=== PATIENT | female | born 1930 | race Two or more races ===

== ENCOUNTER 2017-07-07 15:41 | Inpatient (IN) | payer MEDICARE, MEDICAID ==
[~2017-07-07] VITALS: Ht 157.5 cm; Wt 48.3 kg
--- NOTE | 2017-07-07 15:45 | NUR ---
BIB RA FROM HOME, NOT GETTING OUT OF BED SINCE SHE FELL AND HIT HER HEAD YESTERDAY. RR IS EVEN AND UNLABORED WITH NAD NOTED. SKIN IS WARM AND DRY. DR MAGANA AT BS FOR EVAL. CRIS L WRIST 20 CHILDCARE DIRECTOR. PLACED ON MONITOR AND WILL CONTINUOUSLY MONITOR THE PATIENT.
--- NOTE | 2017-07-07 15:58 | NUR ---
BS=76MG/DL, NOTIFIED DR MAGANA
[2017-07-07 16:16] LABS: BASOPHILS % (AUTO) 0.3 % (0.0-2.0); EOSINOPHILS # (AUTO) 0.1 /CMM (0.0-0.7); EOSINOPHILS % (AUTO) 1.3 % (0.0-6.0); HEMATOCRIT 34 % (33-45); HEMOGLOBIN 11.5 g/dL (11.5-14.8); LYMPHOCYTES % (AUTO) 12.1 % (20.0-44.0); MEAN CORPUSCULAR HEMOGLOBIN 30 PG (26.0-33.0); MEAN CORPUSCULAR HGB CONC 34 g/dl (31.0-36.0); MEAN CORPUSCULAR VOLUME 89 fL (82-100); MONOCYTES # (AUTO) 0.4 /CMM (0.1-1.30); MONOCYTES % (AUTO) 5.2 % (2.0-12.0); NEUTROPHILS # (AUTO) 6.5 /CMM (1.8-8.9); NEUTROPHILS % (AUTO) 81.1 % (43.0-81.0); PLATELET COUNT (AUTO) 273 /CMM (150-450); RDW COEFFICIENT OF VARIATION 13.2 (11.5-15.0); RED BLOOD CELL COUNT(AUTO) 3.81 MIL/uL (4.0-5.2)
[2017-07-07 16:27] LABS: CALCIUM, SERUM 8.8 mg/dL (8.5-10.1); CARBON DIOXIDE 27 mmol/L (21-32); CHLORIDE 111 mmol/L (98-107); CREATININE 0.6 mg/dL (0.6-1.3); GLUCOSE 82 mg/dL (74-106); POTASSIUM 3.9 mmol/L (3.5-5.1); SODIUM SERUM 144 mmol/L (136-145); UREA NITROGEN, BLOOD 22 mg/dL (7-18)
[2017-07-07 16:29] LABS: INR 1.01 (0.85-1.15)
--- NOTE | 2017-07-07 16:30 | NUR ---
Patient is resting comfortably in bed with eyes closed. Easily aroused. VSS
[2017-07-07 16:34] LABS: ALANINE AMINOTRANSFERASE 14 U/L (12-78); ALBUMIN 3.4 g/dL (3.4-5.0); ALKALINE PHOSPHATASE 73 U/L (46-116); ASPARTATE AMINOTRANSFERASE 16 U/L (15-37); BILIRUBIN,DIRECT 0.1 mg/dL (0.0-0.2); BILIRUBIN,TOTAL 0.5 mg/dL (0.2-1.0); TOTAL PROTEIN, SERUM 6.7 g/dL (6.4-8.2)
[2017-07-07 16:36] LABS: TROPONIN I < 0.017 ng/mL (0.00-0.056)
[2017-07-07 16:43] LABS: APPEARANCE,URINE Clear (CLEAR); BILIRUBIN,URINE Negative (NEGATIVE); BLOOD, URINE Moderate Ery/uL (NEGATIVE); COLOR,URINE Yellow (YELLOW); KETONES,URINE 40 (NEGATIVE); LEUKOCYTE ESTERASE ,URINE Trace (NEGATIVE); NITRITE, URINE Positive (NEGATIVE); PH,URINE 6.5 (5.0-8.0); PROTEIN,URINE 30 mg/dl (NEGATIVE); UGLUCOSE 100 MG/DL mg/dL (NEGATIVE)
[2017-07-07 16:49] LABS: BACTERIA,URINE Many /HPF (None Seen); MUCUS,URINE Moderate /LPF (None Seen); SQUAMOUS EPITHELIAL CELL,UR Many /HPF (None Seen)
[2017-07-07 17:25] LABS: NEUTROPHILS % (MANUAL) 79 (42-76)
[2017-07-07 17:26] LABS: EOSINOPHILS % (MANUAL) 3 % (0-4); LYMPHOCYTES % (MANUAL) 13 % (16-48); MONOCYTES % (MANUAL) 5 % (0-11.0)
--- NOTE | 2017-07-07 17:45 | NUR ---
Patient is resting comfortably in bed with eyes closed. Easily aroused. VSS
[2017-07-07] MEDS ORDERED: CIPROFLOXACIN IV RTU 400 MG in PREMIX 1 EA IV STA (18:15)
[2017-07-07] MEDS ORDERED: CIPROFLOXACIN IV RTU 200 ML IV ONE (18:21)
--- NOTE | 2017-07-07 19:03 | NUR ---
REPORT GIVEN CHASE PRINCE FOR BOBBY.
[2017-07-07] MEDS ORDERED: QUET25TA PO (19:09)
[2017-07-07] MEDS ORDERED: LORA0.5T PO (19:09)
[2017-07-07] MEDS ORDERED: ACETAMINOPHEN 325 MG TABLET PO PRN (19:30)
[2017-07-07] MEDS ORDERED: HYDROCODONE/APAP 5/325MG 1 EACH TABLET PO PRN (19:30)
[2017-07-07] MEDS ORDERED: ONDANSETRON HCL/PF 4 MG/2 ML VIAL IVP PRN (19:30)
[2017-07-07] MEDS ORDERED: MAG HYDROX/AL HYDROX/SIMETH 30 ML UDC PO PRN (19:30)
[2017-07-07] MEDS ORDERED: MAGNESIUM HYDROXIDE 30 ML UDC PO PRN (19:30)
[2017-07-07] MEDS ORDERED: ZOLPIDEM TARTRATE 5 MG TABLET PO PRN (19:30)
[2017-07-07] MEDS ORDERED: Z GUARD REMEDY 2 OZ OINT TP PRN (19:30)
--- NOTE | 2017-07-07 19:34 | NUR ---
Patient is resting comfortably in bed with eyes closed. Easily aroused. VSS. daughter bedside
--- NOTE | 2017-07-07 20:31 | NUR ---
gave report to angelic Chaudhary for americo
[2017-07-07 20:40] VITALS: BP 135/66
--- NOTE | 2017-07-07 20:40 | NUR ---
TELERN RECEIVED FROM ER 86Y/O FEMALE S/P FALL AT HOME AFTER GETTING OOB. SUSTAINED LEFT FOREHEAD LACERATION COVERED WITH BANDAID. ALTERED, LIMITED VERBAL, S[place] AFR[place] DESCENT. NO SOB, PAINFREE, V/S STABLE. HFR, BED ALARM ON, ORIENTED TO ROOM FACILITIES, UNABLE TO FOLLOW. TO STAY OVERNIGHT. DAUGHTER PROVIDED HEALTH INFO OF PATIENT. KEPT COMFORTABLE, SR ON THE MONITOR. CONTINUED
[2017-07-07] MEDS ORDERED: LEVOFLOXACIN 750 MG /D5W 150ML 750 MG in PREMIX 1 EA IV SCH (21:00)
[2017-07-07] MEDS: IV NS 0.9% 1,000 ML IV PRN (21:30)
[2017-07-07] MEDS: ENOXAPARIN SODIUM 40 MG/0.4 ML DISP.SYRIN SQ SCH (21:33)
[2017-07-07] MEDS ORDERED: LEVOFLOXACIN 750 MG /D5W 150ML 150 ML IV ONE (22:43)
--- NOTE | 2017-07-07 23:00 | NUR ---
TELERN DUE MEDS ADMINISTERD, PRESENT IVF INFUSING WELL. PICTURES TAKEN SEE CHART. REPOSITIONED, ALL NEEDS ATTENDED.
[2017-07-08] VITALS (8 sets, daily range): BP systolic 107–144; BP diastolic 49–90
--- NOTE | 2017-07-08 02:43 | NUR ---
TELERN SLEEPING APPEARS COMFORTABLE, CLOSELY WATCHED
--- NOTE | 2017-07-08 07:15 | NUR ---
RN NOTES: PATIENT RESTING IN BED. NONLABORED BREATHING ON ROOM AIR. AOX1, NO FACIAL GRIMACING NOTED. PATIENT'S IV ON LEFT ARM GAUGE 20 PATENT AND INTACT. BED IN LOWEST LOCKED POSITION, CALL LIGHT WITHIN REACH, WILL CONTINUE TO MONITOR
--- NOTE | 2017-07-08 07:22 | NUR ---
MSRN AWAKE AT TIMES, FELL ASLEEP AFTER FEW MIN. SCD ON. IVF CONTINUED
[2017-07-08 08:15] LABS: BASOPHILS % (AUTO) 0.2 % (0.0-2.0); EOSINOPHILS # (AUTO) 0.2 /CMM (0.0-0.7); EOSINOPHILS % (AUTO) 2.6 % (0.0-6.0); HEMATOCRIT 31 % (33-45); HEMOGLOBIN 10.6 g/dL (11.5-14.8); LYMPHOCYTES # (AUTO) 1.2 /CMM (0.8-4.8); MEAN CORPUSCULAR HEMOGLOBIN 31 PG (26.0-33.0); MEAN CORPUSCULAR HGB CONC 34 g/dl (31.0-36.0); MEAN CORPUSCULAR VOLUME 91 fL (82-100); MONOCYTES # (AUTO) 0.6 /CMM (0.1-1.30); NEUTROPHILS # (AUTO) 6.1 /CMM (1.8-8.9); NEUTROPHILS % (AUTO) 75.2 % (43.0-81.0); PLATELET COUNT (AUTO) 245 /CMM (150-450); RDW COEFFICIENT OF VARIATION 14.2 (11.5-15.0); RED BLOOD CELL COUNT(AUTO) 3.45 MIL/uL (4.0-5.2); WHITE BLOOD COUNT (AUTO) 8.1 K/uL (4.3-11.0)
[2017-07-08 08:27] LABS: CALCIUM, SERUM 8.3 mg/dL (8.5-10.1); CARBON DIOXIDE 23 mmol/L (21-32); CHLORIDE 111 mmol/L (98-107); CREATININE 0.6 mg/dL (0.6-1.3); GLUCOSE 80 mg/dL (74-106); MAGNESIUM 2.1 mg/dL (1.8-2.4); PHOSPHORUS 2.5 mg/dL (2.5-4.9); POTASSIUM 3.9 mmol/L (3.5-5.1); SODIUM SERUM 145 mmol/L (136-145); UREA NITROGEN, BLOOD 16 mg/dL (7-18)
[2017-07-08 08:38] LABS: CHOLESTEROL 120 mg/dL (<200); HDL CHOLESTEROL 48 mg/dL (40-60); LDL 67 mg/dL (0-99); THYROID STIMULATING HORMONE 1.885 uIU/mL (0.358-3.74); TRIGLYCERIDES 46 mg/dL (30-150)
[2017-07-08] MEDS ORDERED: FISH1CAP16 PO (13:03)
[2017-07-08] MEDS ORDERED: METF500T4 PO (13:03)
[2017-07-08] MEDS ORDERED: ASPI-1152 PO (13:03)
[2017-07-08] MEDS ORDERED: DOCU250C89 PO (13:03)
[2017-07-08] MEDS ORDERED: SIMV20TA6 PO (13:03)
[2017-07-08] MEDS ORDERED: [UNRECOGNIZED DRUG - CODE] PO (13:03)
[2017-07-08] MEDS ORDERED: FOLI1TAB16 PO (13:03)
[2017-07-08] MEDS ORDERED: ZOLP5TAB2 PO (13:03)
[2017-07-08] MEDS ORDERED: OXYB10TA PO (13:03)
[2017-07-08] MEDS ORDERED: METH5TAB6 PO (13:03)
--- NOTE | 2017-07-08 13:45 | NUR ---
RN NOTES: FACIAL GRIMACING NOTED ON PATIENT INDICATING MODERATE PAIN. NORCO PRN ADMINISTERED BP 149/67, NONLABORED BREATHING ON ROOM AIR
--- NOTE | 2017-07-08 14:00 | NUR ---
RN NOTES: DR ALONZO ORDERED TO CONTINUE THE SEROQUEL 25 MG PO Q AM AND PM
--- NOTE | 2017-07-08 14:00 | NUR ---
RN NOTES: DR ALONZO ORDERED TO CONTINUE THE SEROQUEL 25 MG PO Q AM AND PM PER PATIENT'S ADMINISTRATION DOSAGE AT HOME. INFORMED THAT HOME MEDICATION LIST IS ALSO UPDATED VIA [facility] NURSE
[2017-07-08] MEDS: IV NS 0.9% 1,000 ML IV PRN (14:26)
[2017-07-08] MEDS ORDERED: QUETIAPINE FUMARATE 25 MG TABLET PO SCH ×2 (14:30→22:00)
--- NOTE | 2017-07-08 19:19 | NUR ---
RN NOTES: PATIENT'S TEMP CHECKED NOW, 100.2F AFTER TYLENOL AND COOLING MEASURES IMPLEMENTED, ENDORSED TO MARILUZ FROZEN FOODS MANAGER TO RECHECK TEMPERATURE AGAIN, NO SIGNS OF DISTRESS NOTED. DR ALONZO AWARE OF POSITIVE ECOLI CULUTRE URINE
--- NOTE | 2017-07-08 19:20 | NUR ---
RN NOTES: PATIENT RESTING IN BED. NONLABORED BREATHING ON ROOM AIR. AOX1, NO FACIAL GRIMACING NOTED. PATIENT'S IV ON LEFT ARM GAUGE 20 PATENT AND INTACT. BED IN LOWEST LOCKED POSITION, CALL LIGHT WITHIN REACH. DURING SHIFT,PATIENT KEPT CLEAN AND DRY, TURNED AND REPOSITIONED Q 2 HOURS. PATIENT ASSESSED AND NEURO CHECKS DONE Q 2 HOURS,PATIENT REMAINED CONFUSED THROUGHOUT SHIFT, UNABLE TO FOLLOW DEMANDS, REORIENTED. PUPILS REACTIVED TO LIGHT, 3 MM, SLUGGISH, WHEN SPOKEN TO FOLLOW PENLIGHT,PATIENT UNABLE TO DO IT.PER DR, PATIENT IS CONFUSED PREVIOUSLY AT HOME. ENDORSED TO NEXT SHIFT
--- NOTE | 2017-07-08 20:00 | NUR ---
MS/DATABASE SUPPORT; RECEIVED PT IN BED WITH EYES CLOSED , NON VERBAL. BREATHING NON LABORED. IVF ON PROGRESS. NOTED LT SIDE FOREHEAD WITH MEPILEX ON. BED ON LOWER POSITION FOR SAFETY. SIDE RAILS ARE UP X 4 FOR SAFETY. FC INTACT WITH 100 ML CLEAR YELLOW URINE. CONTINUE TO MONITOR. CALL LIGHT WITHIN REACH.
[2017-07-08] MEDS: ENOXAPARIN SODIUM 40 MG/0.4 ML DISP.SYRIN SQ SCH (21:19)
[2017-07-08] MEDS: QUETIAPINE FUMARATE 25 MG TABLET PO SCH (22:52)
[2017-07-09] MEDS: IV NS 0.9% 1,000 ML IV PRN ×2 (02:25→18:57)
--- NOTE | 2017-07-09 07:15 | NUR ---
MS/TUB MENDER; SLEEP MOST OF THE NIGHT. PT MOANED AND OPENED HER EYES DURING TURNING OF THE PT. IVF ON PROGRESS, WILL CONTINUE TO MONITOR. WILL ENDORSE TO THE DAY SHIFT RN.
[2017-07-09 07:44] LABS: BASOPHILS % (AUTO) 0.5 % (0.0-2.0); EOSINOPHILS # (AUTO) 0.2 /CMM (0.0-0.7); EOSINOPHILS % (AUTO) 2.9 % (0.0-6.0); HEMATOCRIT 34 % (33-45); HEMOGLOBIN 11.5 g/dL (11.5-14.8); LYMPHOCYTES # (AUTO) 1.1 /CMM (0.8-4.8); LYMPHOCYTES % (AUTO) 17.5 % (20.0-44.0); MEAN CORPUSCULAR HEMOGLOBIN 31 PG (26.0-33.0); MEAN CORPUSCULAR HGB CONC 34 g/dl (31.0-36.0); MEAN CORPUSCULAR VOLUME 91 fL (82-100); MONOCYTES # (AUTO) 0.6 /CMM (0.1-1.30); MONOCYTES % (AUTO) 8.6 % (2.0-12.0); NEUTROPHILS # (AUTO) 4.6 /CMM (1.8-8.9); NEUTROPHILS % (AUTO) 70.5 % (43.0-81.0); PLATELET COUNT (AUTO) 263 /CMM (150-450); RDW COEFFICIENT OF VARIATION 14.2 (11.5-15.0); RED BLOOD CELL COUNT(AUTO) 3.71 MIL/uL (4.0-5.2); WHITE BLOOD COUNT (AUTO) 6.5 K/uL (4.3-11.0)
[2017-07-09 08:00] VITALS: BP 157/72
--- NOTE | 2017-07-09 08:30 | NUR ---
ms rn received on bed, nonverbal patient, not in any form of distress, respirations even and unlabored,no sob noted.
[2017-07-09 08:35] LABS: CALCIUM, SERUM 8.8 mg/dL (8.5-10.1); CARBON DIOXIDE 26 mmol/L (21-32); CHLORIDE 110 mmol/L (98-107); CREATININE 0.7 mg/dL (0.6-1.3); GLUCOSE 89 mg/dL (74-106); MAGNESIUM 2.1 mg/dL (1.8-2.4); PHOSPHORUS 3.6 mg/dL (2.5-4.9); POTASSIUM 3.9 mmol/L (3.5-5.1); SODIUM SERUM 142 mmol/L (136-145); UREA NITROGEN, BLOOD 12 mg/dL (7-18)
--- NOTE | 2017-07-09 09:30 | NUR ---
ms atwood breakfast served, text dr. jennings to reconcile medications.
[2017-07-09] MEDS ORDERED: ZOLPIDEM TARTRATE 5 MG TABLET PO PRN ×2 (12:00→14:00)
[2017-07-09] MEDS ORDERED: MAGNESIUM HYDROXIDE 30 ML UDC PO PRN (12:00)
--- NOTE | 2017-07-09 12:00 | NUR ---
ms rn gave due meds at this time.daughter aware.
[2017-07-09] MEDS: METFORMIN 500 MG TABLET PO SCH (13:39)
[2017-07-09] MEDS: MULTIVITAMINS,THERAGRAN 1 UDTAB TABLET PO SCH (13:39)
[2017-07-09] MEDS: OXYBUTYNIN CHLORIDE ER 5 MG TAB PO SCH (13:40)
[2017-07-09] MEDS: METHIMAZOLE (5MG) 5 MG TABLET PO SCH (13:40)
[2017-07-09] MEDS: DOCUSATE SODIUM 250 MG CAPSULE PO SCH ×2 (13:40→18:52)
[2017-07-09] MEDS: ASPIRIN EC 81 MG TABLET.DR PO SCH (13:40)
[2017-07-09] MEDS: QUETIAPINE FUMARATE 25 MG TABLET PO SCH ×2 (13:40→22:13)
[2017-07-09 16:00] VITALS: BP 148/56
[2017-07-09] MEDS ORDERED: QUETIAPINE FUMARATE 25 MG TABLET PO SCH (17:00)
[2017-07-09] MEDS ORDERED: DOCUSATE SODIUM 250 MG CAPSULE PO SCH (17:00)
[2017-07-09] MEDS ORDERED: FOLIC ACID 1 MG TABLET PO SCH (18:00)
--- NOTE | 2017-07-09 18:43 | NUR ---
ms rn on bed, no change of condition.all needs attended.
[2017-07-09] MEDS: FOLIC ACID 1 MG TABLET PO SCH (18:52)
--- NOTE | 2017-07-09 19:30 | NUR ---
MS/ENTEROSTOMAL NURSE; RECEIVED PT IN BED WITH EYES CLOSED. BREATHING NON LABORED. LT SIDE FOREHEAD WITH MEPILEX ON. FC INTACT WITH 20 ML YELLOW URINE IN THE BAG. IVF ON PROGRESS. BED ON LOWER POSITION AND LOCKED FOR SAFETY. SIDE RAILS X 4 ARE ALL UP FOR SAFETY. CONTINUE TO MONITOR. CALL LIGHT WITHIN REACH.
[2017-07-09 20:00] VITALS: BP 127/48
[2017-07-09] MEDS: ENOXAPARIN SODIUM 40 MG/0.4 ML DISP.SYRIN SQ SCH (20:52)
[2017-07-09] MEDS ORDERED: LEVOFLOXACIN 750 MG /D5W 150ML 750 MG in PREMIX 1 EA IV SCH (21:00)
[2017-07-09] MEDS ORDERED: LORAZEPAM 0.5 MG TABLET PO PRN (21:00)
[2017-07-09] MEDS ORDERED: SIMVASTATIN 20 MG TABLET PO SCH ×2 (22:00)
[2017-07-09] MEDS ORDERED: POLYETHYLENE GLYCOL 3350 17 GM POWD.PACK PO SCH (22:00)
[2017-07-09] MEDS ORDERED: LORAZEPAM 0.5 MG TABLET PO SCH (22:00)
--- NOTE | 2017-07-10 07:00 | NUR ---
MS /INDUSTRIAL ORGANIZATIONAL PSYCHOLOGIST; SLEPT FAIRLY. IVF ON PROGRESS. FC INTACT WITH YELLOW URINE. NO BM AT MODEL MAKER FIREARMS. AM CARE DONE BY THE GLOBAL MOBILITY SPECIALIST. WILL ENDORSE TO THE DAY SHIFT.
--- NOTE | 2017-07-10 07:43 | NUR ---
MS RN OPENING NOTES RECEIVED PATIENT IN NO APPARENT DISTRESS. PATIENT IS RESTING IN BED. BEDSIDE RAILS ARE UPX2. BED IS LOCKED AND LOWERED. CALL LIGHT IS WITHIN REACH. WILL CONTINUE TO MONITOR.
[2017-07-10 08:00] VITALS: BP 137/98
[2017-07-10] MEDS: QUETIAPINE FUMARATE 25 MG TABLET PO SCH (08:12)
[2017-07-10] MEDS: MULTIVITAMINS,THERAGRAN 1 UDTAB TABLET PO SCH (08:12)
[2017-07-10] MEDS: ASPIRIN EC 81 MG TABLET.DR PO SCH (08:13)
[2017-07-10] MEDS: METHIMAZOLE (5MG) 5 MG TABLET PO SCH (08:13)
[2017-07-10] MEDS: METFORMIN 500 MG TABLET PO SCH (08:13)
[2017-07-10] MEDS: OXYBUTYNIN CHLORIDE ER 5 MG TAB PO SCH (08:21)
[2017-07-10] MEDS: DOCUSATE SODIUM 250 MG CAPSULE PO SCH ×2 (08:21→17:01)
[2017-07-10] MEDS ORDERED: OXYBUTYNIN CHLORIDE ER 5 MG TAB PO SCH (09:00)
[2017-07-10] MEDS ORDERED: MULTIVITAMINS,THERAGRAN 1 UDTAB TABLET PO SCH (09:00)
[2017-07-10] MEDS ORDERED: METHIMAZOLE (5MG) 5 MG TABLET PO SCH (09:00)
[2017-07-10] MEDS ORDERED: ASPIRIN EC 81 MG TABLET.DR PO SCH (09:00)
[2017-07-10] MEDS ORDERED: METFORMIN 500 MG TABLET PO SCH (09:00)
[2017-07-10] MEDS ORDERED: MISCELLANEOUS MED 1 EA EA PO SCH (09:00)
[2017-07-10] MEDS ORDERED: NEOMY SULF/BACITRAC ZN/POLY 15 GM TUBE TP SCH (11:00)
--- NOTE | 2017-07-10 12:27 | NUR ---
CALLED PHARMACY TO PROVIDE NEOSPORIN OINTMENT FOR THE PATIENT. PHARMACY WILL PROVIDE
[2017-07-10] MEDS: IV NS 0.9% 1,000 ML IV PRN (14:34)
[2017-07-10] MEDS ORDERED: LEVO500T75 PO (15:46)
[2017-07-10 16:00] VITALS: BP 142/74
[2017-07-10] MEDS: FOLIC ACID 1 MG TABLET PO SCH (17:01)
--- NOTE | 2017-07-10 18:57 | NUR ---
MS DIGESTER OPERATOR NOTES PATIENT DISCHARGED IN STABLE CONDITION. PATIENT IS ALERT. IN NO APPARENT DISTRESS. VITAL SIGNS ARE WITHIN NORMAL LIMITS. ID BAND WAS REMOVED. IV WAS REMOVED. PATIENT ESCORTED OUTSIDE OF THE HOSPITAL VIA WHEELCHAIR TO DAUGHTERS CAR. DAUGHTER WILL DRIVE PATIENT TO THEIR HOME. ALL NEEDS WERE MET.
== END 2017-07-10 19:00 | disposition home health service (06) | DRG 604 ==
LOC: ER 15:44 → TELE 20:34 → MED 07-08 09:39
DX: S01.91XA Laceration without foreign body of unspecified part of head, initial encounter (principal); G93.41 Metabolic encephalopathy; N39.0 Urinary tract infection, site not specified; E11.9 Type 2 diabetes mellitus without complications; G30.9 Alzheimer's disease, unspecified; F02.80 Dementia in other diseases classified elsewhere, unspecified severity, without behavioral disturbance, psychotic disturbance, mood disturbance, and anxiety; I10 Essential (primary) hypertension; B96.20 Unspecified Escherichia coli [E. coli] as the cause of diseases classified elsewhere; W06.XXXA Fall from bed, initial encounter; S01.81XA Laceration without foreign body of other part of head, initial encounter; W19.XXXA Unspecified fall, initial encounter; S50.811A Abrasion of right forearm, initial encounter; Y92.009 Unspecified place in unspecified non-institutional (private) residence as the place of occurrence of the external cause; Z98.890 Other specified postprocedural states; Z88.0 Allergy status to penicillin; S50.812A Abrasion of left forearm, initial encounter; Z87.442 Personal history of urinary calculi; Z79.899 Other long term (current) drug therapy; Z79.82 Long term (current) use of aspirin; Z79.84 Long term (current) use of oral hypoglycemic drugs; I70.0 Atherosclerosis of aorta
CPT/HCPCS: 36415; 70450-TC; 71045-TC; 72125-TC; 80048-TC; 80061-TC; 80076-TC; 81000-TC; 82962-TC; 83605-TC; 83735-TC; 84100-TC; 84443-TC; 84484-TC; 85025-TC; 85730-TC; 87040-TC; 87081-TC; 87086-TC; 87186-TC; 93307-TC; 93880-TC; 97110-TC; 97112-TC; 97116-TC; 97530-TC; A4216; A4606; A6403; J0744; J1650; J1956; J7030; Z7610

== ENCOUNTER 2019-04-04 15:28 | Inpatient (IN) | payer MEDICARE, MEDICAID ==
[~2019-04-04] VITALS: Ht 157.5 cm; Wt 37.8 kg
[~2019-04-04 15:28] MED LIST: ASPI-1152 PO; DOCU250C89 PO; FISH1CAP16 PO; FOLI1TAB16 PO; LEVO500T75 PO; LORA0.5T PO; METF-440 PO; METH5TAB6 PO; OXYB10TA2 PO; QUET25TA PO; SIMV-46 PO; ZOLP5TAB2 PO; [UNRECOGNIZED DRUG - CODE] PO
[2019-04-04] MEDS ORDERED: IV NS 0.9% 1,000 ML BAG IV ONE (16:00)
--- NOTE | 2019-04-04 16:03 | NUR ---
PT BIB RA FROM HOME DUE DAUGHTER OF PATIENT SAYING THAT THE PATIENT IS REFUSING TO EAT OR DRINK. PT IS AWAKE AND REPONSIVE TO VERBAL AND PHYSICAL STIMULI. BREATHING IS EVEN AND UNLABORED. WILL CONTINUE TO MONITOR.
[2019-04-04 16:11] LABS: BASOPHILS % (AUTO) 0.2 % (0.0-2.0); HEMATOCRIT 43 % (33-45); HEMOGLOBIN 13.7 g/dL (11.5-14.8); LYMPHOCYTES # (AUTO) 0.6 /CMM (0.8-4.8); LYMPHOCYTES % (AUTO) 4.8 % (20.0-44.0); MEAN CORPUSCULAR HGB CONC 32 g/dl (31.0-36.0); MEAN CORPUSCULAR VOLUME 93 fL (82-100); MONOCYTES # (AUTO) 0.6 /CMM (0.1-1.30); MONOCYTES % (AUTO) 4.3 % (2.0-12.0); NEUTROPHILS # (AUTO) 11.9 /CMM (1.8-8.9); NEUTROPHILS % (AUTO) 90.7 % (43.0-81.0); PLATELET COUNT (AUTO) 295 /CMM (150-450); RED BLOOD CELL COUNT(AUTO) 4.59 MIL/uL (4.0-5.2); WHITE BLOOD COUNT (AUTO) 13.1 K/uL (4.3-11.0)
[2019-04-04 16:27] LABS: ALANINE AMINOTRANSFERASE 7 U/L (12-78); ALBUMIN 3.4 g/dL (3.4-5.0); ALKALINE PHOSPHATASE 65 U/L (46-116); ASPARTATE AMINOTRANSFERASE 10 U/L (15-37); BILIRUBIN,DIRECT 0.2 mg/dL (0.0-0.2); BILIRUBIN,TOTAL 0.7 mg/dL (0.2-1.0); CALCIUM, SERUM 8.9 mg/dL (8.5-10.1); CARBON DIOXIDE 25 mmol/L (21-32); CHLORIDE 112 mmol/L (98-107); CREATININE 0.6 mg/dL (0.6-1.3); GLUCOSE 181 mg/dL (74-106); POTASSIUM 3.4 mmol/L (3.5-5.1); SODIUM SERUM 147 mmol/L (136-145); TOTAL PROTEIN, SERUM 7.3 g/dL (6.4-8.2); UREA NITROGEN, BLOOD 29 mg/dL (7-18)
[2019-04-04 16:33] LABS: APPEARANCE,URINE Slightly Cloudy (CLEAR); BILIRUBIN,URINE Negative (NEGATIVE); BLOOD, URINE Large Ery/uL (NEGATIVE); COLOR,URINE Yellow (YELLOW); KETONES,URINE 80 (NEGATIVE); LEUKOCYTE ESTERASE ,URINE Small (NEGATIVE); NITRITE, URINE Positive (NEGATIVE); PROTEIN,URINE 100 mg/dl (NEGATIVE); UGLUCOSE Negative (NEGATIVE); UROBILINOGEN,URINE 0.2 EU/dL (0.2)
[2019-04-04] MEDS ORDERED: GENTAMICIN 80 MG in IV D5W 50 ML IV ONE (17:00)
[2019-04-04 17:04] LABS: BACTERIA,URINE Many /HPF (None Seen); SQUAMOUS EPITHELIAL CELL,UR Few /HPF (None Seen)
--- NOTE | 2019-04-04 17:43 | NUR ---
CALLED [facility], PAGED ROWDY
--- NOTE | 2019-04-04 18:10 | NUR ---
REQUESTED [facility] BED
[2019-04-04] MEDS ORDERED: IV NS 0.9% 1,000 ML IV PRN (18:43)
[2019-04-04] MEDS ORDERED: MAG HYDROX/AL HYDROX/SIMETH 30 ML UDC PO PRN (19:00)
[2019-04-04] MEDS ORDERED: ONDANSETRON HCL/PF 4 MG/2 ML VIAL IVP PRN (19:00)
[2019-04-04] MEDS ORDERED: HYDROCODONE/APAP 5/325MG 1 EACH TABLET PO PRN (19:00)
[2019-04-04] MEDS ORDERED: POTASSIUM CHLORIDE 20 MEQ TAB.PRT.SR PO ONE (19:00)
[2019-04-04] MEDS ORDERED: Z GUARD REMEDY 2 OZ OINT TP PRN (19:00)
[2019-04-04] MEDS ORDERED: DEXTROSE 50%-WATER 50 ML DISP.SYRIN IV PRN (19:00)
[2019-04-04] MEDS ORDERED: ACETAMINOPHEN 325 MG TABLET PO PRN (19:00)
[2019-04-04] MEDS ORDERED: MORPHINE SULFATE INJ 2 MG/ML DISP.SYRIN IV PRN (19:00)
[2019-04-04] MEDS: NYSTATIN (PYXIS) 500,000 UNIT/5 ML ORAL.SUSP PO SCH (19:30)
--- NOTE | 2019-04-04 19:41 | NUR ---
BED ASSIGNMENT 325-1
--- NOTE | 2019-04-04 19:49 | NUR ---
REPORT GIVEN TO CHASE ALMEIDA FOR BOBBY.
[2019-04-04 20:00] VITALS: BP 130/70
--- NOTE | 2019-04-04 20:30 | NUR ---
RECEIVED PATIENT VIA GURNEY FROM ED IN STABLE CONDITION. PATIENT ASLEEP, RESPONSIVE TO TACTILE STIMULI ONLY. NO FACIAL GRIMACING OR GROANING TO INDICATE PAIN OR DISCOMFORT. DTR AND CAREGIVER AT BEDSIDE. PERIPHERAL LINE INTACT AND PATENT. PATIENT WITH POLST, SIGNED BY DTR AND ERWIN CABRAL. SPOKE WITH DTR WHO WISHES TO MAINTAIN DNR/DNI. VERIFIED WITH ERWIN CABRAL. DNR/DNI ORDER OBTAINED. BED IN LOW LOCK SETTING. ALL BELONGINGS KEPT NEAR BEDSIDE. WILL CONTINUE TO MONITOR
[2019-04-04] MEDS: CEFEPIME 1 GM in IV D5W 50 ML IV SCH (21:33)
[2019-04-04] MEDS ORDERED: POTASSIUM CL. PREMIX PERIPHER. 50 ML IV SCH (22:00)
--- NOTE | 2019-04-04 22:00 | NUR ---
WITH ORDER FOR KCL 40 MEQ PO X1 DOSE, HOWEVER PATIENT IS ALTERED AND RESPONSIVE TO TACTILE STIMULI ONLY BUT UNABLE TO STAY AWAKE. SPOKE WITH DR. NAVA RE LABS: K+ 3.5 AND NA+ 147. WITH ORDERS FOR KCL 10MEQ IV X1 DOSE AND IVF NS CHANGED TO D5 1/2 NS @ 70ML/HR. ORDERS READ BACK, NOTED AND CARRIED OUT.
[2019-04-04] MEDS: FLUCONAZOLE IN NS 100 MG in PREMIX 1 EA IV SCH ×2 (22:16)
[2019-04-04] MEDS: IV D5/0.45 NACL 1,000 ML IV PRN (22:21)
[2019-04-04] MEDS: BLOOD SUGAR DIAGNOSTIC 1 EACH STRIP IN SCH (22:33)
--- NOTE | 2019-04-05 06:31 | NUR ---
MS RN NOTES PATIENT ASLEEP IN BED WITH NO DISTRESS NOTED. CALL LIGHT WITHIN REACH. ALL DUE MEDS GIVEN ORDERED WITH NO ASE NOTED. NO FACIAL GRIMACING OR GROANING TO INDICATE PAIN OR DISCOMFORT. PERIPHERAL LINE INTACT AND PATENT. BED IN LOW LOCK SETTING. ROOM FREE OF CLUTTER AND BELONGINGS KEPT NEAR BEDSIDE. WILL ENDORSE TO ONCOMING SHIFT.
[2019-04-05 07:00] LABS: BASOPHILS % (AUTO) 0.2 % (0.0-2.0); EOSINOPHILS % (AUTO) 0.3 % (0.0-6.0); HEMATOCRIT 38 % (33-45); HEMOGLOBIN 12.5 g/dL (11.5-14.8); LYMPHOCYTES # (AUTO) 0.6 /CMM (0.8-4.8); MEAN CORPUSCULAR HGB CONC 33 g/dl (31.0-36.0); MEAN CORPUSCULAR VOLUME 92 fL (82-100); MONOCYTES # (AUTO) 0.4 /CMM (0.1-1.30); MONOCYTES % (AUTO) 3.9 % (2.0-12.0); NEUTROPHILS # (AUTO) 9.3 /CMM (1.8-8.9); NEUTROPHILS % (AUTO) 89.6 % (43.0-81.0); PLATELET COUNT (AUTO) 244 /CMM (150-450); RED BLOOD CELL COUNT(AUTO) 4.09 MIL/uL (4.0-5.2); WHITE BLOOD COUNT (AUTO) 10.4 K/uL (4.3-11.0)
--- NOTE | 2019-04-05 07:30 | NUR ---
m/s embedded systems developer: initial assessment received pt in bed with eyes close, appears lethargic, arousable to tactile stimuli. vss. continue on iv fluids. will continue to monitor.
[2019-04-05] MEDS: BLOOD SUGAR DIAGNOSTIC 1 EACH STRIP IN SCH ×4 (07:31→21:39)
[2019-04-05 07:36] LABS: ALANINE AMINOTRANSFERASE 8 U/L (12-78); ALBUMIN 2.8 g/dL (3.4-5.0); ALKALINE PHOSPHATASE 54 U/L (46-116); ASPARTATE AMINOTRANSFERASE 9 U/L (15-37); BILIRUBIN,TOTAL 0.6 mg/dL (0.2-1.0); CALCIUM, SERUM 8.2 mg/dL (8.5-10.1); CARBON DIOXIDE 22 mmol/L (21-32); CHLORIDE 115 mmol/L (98-107); CREATININE 0.5 mg/dL (0.6-1.3); GLUCOSE 143 mg/dL (74-106); PHOSPHORUS 2.3 mg/dL (2.5-4.9); POTASSIUM 3.8 mmol/L (3.5-5.1); SODIUM SERUM 148 mmol/L (136-145); TOTAL PROTEIN, SERUM 6.5 g/dL (6.4-8.2); UREA NITROGEN, BLOOD 21 mg/dL (7-18)
[2019-04-05 07:52] LABS: CHOLESTEROL 107 mg/dL (<200); HDL CHOLESTEROL 33 mg/dL (40-60); LDL 62 mg/dL (0-99); THYROID STIMULATING HORMONE 0.592 uIU/mL (0.358-3.74); TRIGLYCERIDES 70 mg/dL (30-150)
[2019-04-05 08:00] VITALS: BP 143/83
[2019-04-05] MEDS: CEFEPIME 1 GM in IV D5W 50 ML IV SCH ×2 (08:59→21:07)
[2019-04-05] MEDS: ENOXAPARIN SODIUM 40 MG/0.4 ML DISP.SYRIN SQ SCH (09:00)
[2019-04-05] MEDS: NYSTATIN (PYXIS) 500,000 UNIT/5 ML ORAL.SUSP PO SCH ×3 (09:00→17:00)
--- NOTE | 2019-04-05 09:00 | NUR ---
m/s baggage screener: notes pt remains lethargic, high risk for aspiration. po meds held. pending swallow eval. will continue to monitor.
[2019-04-05] MEDS: PANTOPRAZOLE 40 MG TABLET.DR PO SCH (09:02)
--- NOTE | 2019-04-05 10:30 | NUR ---
m/s launchman: md visit caregiver at bedside. pt failed swallow eval. geovanna mccarthy (acnp) at bedside and aware. will keep pt npo. acnp updated caregiver on plan of care and verbalized understanding.
--- NOTE | 2019-04-05 12:00 | NUR ---
m/s truck safety inspector: notes pt remains lethargic. remains npo. private caregiver at bedside. turned and repositioned. will continue to monitor.
[2019-04-05] MEDS ORDERED: POTASSIUM PHOSPHATE MM 7.5 MMOL in IV D5W 100 ML IV SCH (13:30)
--- NOTE | 2019-04-05 14:09 | NUR ---
Social service requested by FRAN Coronado for failure to thrive. Pt. is a 88 year old female who was admitted to [facility] for dehydration and Failure to thrive. MILTON met with the pt's daughter Kimberly. Kimberly informed MILTON that pt. resides with her at their apartment in [place]. Per Kimberly, pt. has a caregiver 11 hours per day daily except overnight. Kimberly stated, pt. has been having trouble swallowing for last day or two. Pt. is receiving home health from [facility]. Kimberly wants pt. to go home upon discharge and not to a SNF. Pt. is non-ambulatory. Pt. eats a pureed diet. Pt. has a wheelchair at home. SW to updated case maker with aforementioned information. Kimberly's contact number .
[2019-04-05 16:00] VITALS: BP 133/72
--- NOTE | 2019-04-05 16:00 | NUR ---
m/s customer leader: notes pt remains lethargic. iv fluids infusing well. private caregiver remains at bedside. will continue to monitor.
[2019-04-05] MEDS: IV D5/0.45 NACL 1,000 ML IV PRN (17:48)
--- NOTE | 2019-04-05 18:15 | NUR ---
m/s runner out: notes turned and repositioned. kept comfortable. remains npo. needs attended. will continue to monitor.
--- NOTE | 2019-04-05 18:50 | NUR ---
m/s customer supply chain analyst: notes tx done to sacral extending to curtis buttocks. needs attended. will monitor.
--- NOTE | 2019-04-05 19:20 | NUR ---
m/s general technician: notes report given to markel (rn) for continuity of care.
--- NOTE | 2019-04-05 19:44 | NUR ---
MS RN NOTES RECEIVED PATIENT ASLEEP IN BED WITH NO DISTRESS NOTED. CALL LIGHT WITHIN REACH. CAREGIVER AT BEDSIDE. NO FACIAL GRIMACING OR GROANING TO INDICATE PAIN OR DISCOMFORT. PERIPHERAL LINE INTACT AND PATENT. BED IN LOW LOCK SETTING. ALL BELONGINGS KEPT NEAR BEDSIDE. WILL CONTINUE TO MONITOR.
[2019-04-05 20:00] VITALS: BP 125/56
[2019-04-05] MEDS: FLUCONAZOLE IN NS 100 MG in PREMIX 1 EA IV SCH ×2 (21:25)
--- NOTE | 2019-04-06 06:26 | NUR ---
MS RN NOTES PATIENT ASLEEP IN BED WITH NO DISTRESS NOTED. CALL LIGHT WITHIN REACH. WOUND TREATMENT RENDERED ORDERED AND TOLERATED WELL. NO FACIAL GRIMACING OR GROANING TO INDICATE PAIN OR DISCOMFORT. ALL DUE MEDS GIVEN ORDERED WITH NO ASE. PERIPHERAL LINE REMAINS INTACT AND PATENT. BED IN LOW LOCK SETTING. ALL BELONGINGS KEPT NEAR BEDSIDE. BED ALARM ON AND FUNCTIONING PROPERLY. WILL ENDORSE TO ONCOMING SHIFT.
--- NOTE | 2019-04-06 07:25 | NUR ---
MS RN OPENING NOTES RECEIVED PATIENT IN BED WITH HOB ELEVATED. NO SOB. RESPONSIVE TO VERBAL AND TACTILE STIMULI. CAREGIVER AT BEDSIDE. RIGHT FA # 18 INTACT INFUSING D5 1/2V NS @ 70ML/HR HARLEY WELL. BED IN LOWEST, POSITION LOCKED. BED ALARM ON. CALL LIGHT WITHIN REACH.
[2019-04-06] MEDS: PANTOPRAZOLE 40 MG TABLET.DR PO SCH (07:30)
[2019-04-06 08:00] VITALS: BP 133/62
[2019-04-06] MEDS: BLOOD SUGAR DIAGNOSTIC 1 EACH STRIP IN SCH ×4 (08:20→21:20)
--- NOTE | 2019-04-06 08:20 | NUR ---
MS RN NOTES BS 85MG/DL, NO INSULIN COVERAGE GIVEN.
--- NOTE | 2019-04-06 08:28 | NUR ---
MS RN NOTES PROTONIX HEL, PATIENT NPO, FAILED SWALLOW EVAL.
[2019-04-06] MEDS: ENOXAPARIN SODIUM 40 MG/0.4 ML DISP.SYRIN SQ SCH (08:49)
[2019-04-06] MEDS: NYSTATIN (PYXIS) 500,000 UNIT/5 ML ORAL.SUSP PO SCH ×3 (08:50→17:48)
[2019-04-06] MEDS: CEFEPIME 1 GM in IV D5W 50 ML IV SCH ×2 (08:50→20:52)
[2019-04-06] MEDS: PANTOPRAZOLE 40 MG VIAL IV SCH (08:52)
[2019-04-06] MEDS: IV D5/0.45 NACL 1,000 ML IV PRN (10:01)
[2019-04-06 10:15] LABS: BASOPHILS % (AUTO) 0.5 % (0.0-2.0); HEMATOCRIT 31 % (33-45); HEMOGLOBIN 10.4 g/dL (11.5-14.8); LYMPHOCYTES # (AUTO) 0.8 /CMM (0.8-4.8); MEAN CORPUSCULAR HGB CONC 33 g/dl (31.0-36.0); MEAN CORPUSCULAR VOLUME 91 fL (82-100); MONOCYTES # (AUTO) 0.4 /CMM (0.1-1.30); MONOCYTES % (AUTO) 5.3 % (2.0-12.0); NEUTROPHILS % (AUTO) 80.2 % (43.0-81.0); PLATELET COUNT (AUTO) 223 /CMM (150-450); RED BLOOD CELL COUNT(AUTO) 3.43 MIL/uL (4.0-5.2); WHITE BLOOD COUNT (AUTO) 7.5 K/uL (4.3-11.0)
[2019-04-06 10:40] LABS: CALCIUM, SERUM 7.9 mg/dL (8.5-10.1); CARBON DIOXIDE 26 mmol/L (21-32); CHLORIDE 113 mmol/L (98-107); CREATININE 0.4 mg/dL (0.6-1.3); GLUCOSE 122 mg/dL (74-106); PHOSPHORUS 1.7 mg/dL (2.5-4.9); POTASSIUM 3.2 mmol/L (3.5-5.1); SODIUM SERUM 144 mmol/L (136-145); UREA NITROGEN, BLOOD 13 mg/dL (7-18)
--- NOTE | 2019-04-06 10:49 | NUR ---
WOUND CARE CONSULT: PT FOLLOWED BY SURGICAL TEAM FOR WOUND CARE. DEFER TO SURGICAL TEAM FOR WOUND TREATMENT PLAN. WILL SEE PRN. DISCUSSED SKIN PROTECTION WITH NURSING STAFF. PT ON [place] ISOFLEX LOW AIRLOSS BED. CURRENT ROSA SCORE IS 9.
[2019-04-06] MEDS ORDERED: POTASSIUM PHOSPHATE MM 15 MMOL in IV D5W 250 ML IV SCH (11:00)
[2019-04-06] MEDS ORDERED: ALBUTEROL FS 2.5 MG/0.5 ML VIAL.NEB NEB PRN (11:00)
[2019-04-06] MEDS: POTASSIUM PHOSPHATE MM 7.5 MMOL in IV D5W 100 ML IV SCH ×2 (11:36→14:55)
[2019-04-06 16:00] VITALS: BP 147/64
--- NOTE | 2019-04-06 19:25 | NUR ---
MS RN CLOSING NOTES PATIENT RESTING COMFORTABLY IN BED. HOB ELEVATED. NO SOB. ON O2 2L/MIN VIA NC HARLEY WELL. RESPONSIVE TO VERBAL AND TACTILE STIMULI. NOTED PATIENT WITH EPISODE OF TALKING DURING THE SHIFT WITH DAUGHTER AT BEDSIDE HEARD. CAREGIVER AT BEDSIDE. RIGHT FA # 18 INTACT INFUSING D5 1/2V NS @ 70ML/HR HARLEY WELL. SUCTIONED PRN. PATIENT WITH EPISODE OF ABLE TO CLEAR THROAT AT TIMES. BED IN LOWEST, POSITION LOCKED. BED ALARM ON. CALL LIGHT WITHIN REACH. IN NO APPARENT DISTRESS.
--- NOTE | 2019-04-06 19:25 | NUR ---
CHANGE OF SHIFT REPORT Patient in bed, unable to assess speech, non verbal. Open eyes. IVF infusing, on supplemental Oxygen at 3L via NC. Maintained upright position, fall precaution maintained.
[2019-04-06 20:05] VITALS: BP 136/67
[2019-04-06] MEDS: INSULIN REGULAR, HUMAN 100 UNIT/ML 3 ML VIAL SQ PRN (21:20)
[2019-04-07 06:23] LABS: BASOPHILS % (AUTO) 0.4 % (0.0-2.0); EOSINOPHILS % (AUTO) 3.5 % (0.0-6.0); HEMATOCRIT 30 % (33-45); HEMOGLOBIN 9.9 g/dL (11.5-14.8); LYMPHOCYTES # (AUTO) 0.6 /CMM (0.8-4.8); LYMPHOCYTES % (AUTO) 9.5 % (20.0-44.0); MEAN CORPUSCULAR HGB CONC 34 g/dl (31.0-36.0); MEAN CORPUSCULAR VOLUME 91 fL (82-100); MONOCYTES # (AUTO) 0.4 /CMM (0.1-1.30); MONOCYTES % (AUTO) 6.3 % (2.0-12.0); NEUTROPHILS # (AUTO) 5.4 /CMM (1.8-8.9); NEUTROPHILS % (AUTO) 80.3 % (43.0-81.0); PLATELET COUNT (AUTO) 131 /CMM (150-450); RED BLOOD CELL COUNT(AUTO) 3.23 MIL/uL (4.0-5.2); WHITE BLOOD COUNT (AUTO) 6.7 K/uL (4.3-11.0)
--- NOTE | 2019-04-07 06:26 | NUR ---
END OF SHIFT REPORT Patient in bed, remains on supplemental oxygen via NC, audible phlegm in throat, suction PRN. IV abx as scheduled, ID following. Afebrile overnight. Aspiration precaution. Q 2hour turning, offload extremities, AMELAI mattress in place.
[2019-04-07] MEDS: BLOOD SUGAR DIAGNOSTIC 1 EACH STRIP IN SCH ×4 (06:36→21:19)
[2019-04-07] MEDS: INSULIN REGULAR, HUMAN 100 UNIT/ML 3 ML VIAL SQ PRN ×4 (06:37→21:19)
[2019-04-07 06:43] LABS: CALCIUM, SERUM 8.1 mg/dL (8.5-10.1); CARBON DIOXIDE 27 mmol/L (21-32); CHLORIDE 109 mmol/L (98-107); CREATININE 0.4 mg/dL (0.6-1.3); GLUCOSE 113 mg/dL (74-106); MAGNESIUM 1.9 mg/dL (1.8-2.4); PHOSPHORUS 2.7 mg/dL (2.5-4.9); POTASSIUM 3.7 mmol/L (3.5-5.1); SODIUM SERUM 140 mmol/L (136-145); UREA NITROGEN, BLOOD 9 mg/dL (7-18)
--- NOTE | 2019-04-07 07:45 | NUR ---
MS RN OPENING NOTES RECEIVED PATIENT ASLEEP IN BED. AROUSABLE TO VERBAL AND TACTILE STIMULI. NO SOB. CAREGIVER AT BEDSIDE. RIGHT WRIST # 22 INTACT INFUSING D5 1/2V NS @ 70ML/HR HARLEY WELL. BED IN LOWEST, POSITION LOCKED. BED ALARM ON. CALL LIGHT WITHIN REACH.
[2019-04-07 08:00] VITALS: BP 149/76
[2019-04-07] MEDS: CEFEPIME 1 GM in IV D5W 50 ML IV SCH ×2 (08:43→20:47)
[2019-04-07] MEDS: PANTOPRAZOLE 40 MG VIAL IV SCH (08:44)
[2019-04-07] MEDS: NYSTATIN (PYXIS) 500,000 UNIT/5 ML ORAL.SUSP PO SCH ×3 (08:44→17:42)
[2019-04-07] MEDS: ENOXAPARIN SODIUM 40 MG/0.4 ML DISP.SYRIN SQ SCH (08:44)
[2019-04-07] MEDS: ASPIRIN EC 81 MG TABLET.DR PO SCH (11:46)
[2019-04-07] MEDS: METHIMAZOLE (5MG) 5 MG TABLET PO SCH (11:46)
[2019-04-07] MEDS: MULTIVITAMINS,THERAGRAN 1 UDTAB TABLET PO SCH (11:46)
[2019-04-07] MEDS: IV D5/0.45 NACL 1,000 ML IV PRN (15:38)
[2019-04-07 16:00] VITALS: BP 159/73
[2019-04-07] MEDS: HYDROGEL DRESSING 90 GM TUBE TP SCH ×2 (16:17→20:49)
[2019-04-07] MEDS: DOCUSATE SODIUM 250 MG CAPSULE PO SCH (17:42)
--- NOTE | 2019-04-07 18:52 | NUR ---
MS RN CLOSING NOTES PATIENT RESTING COMFORTABLY IN BED. ALERT TO SELF. NO SOB. CAREGIVER AT BEDSIDE. NO EVIDENCE OF PAIN NOR DISCOMFORT AT THIS TIME. OBSERVED PATIENT WITH GOOD MEAL INTAKE DURING BREAKFAST AND POOR INTAKE DURING LUNCH AND DINNER AND GETS TIRED EASILY. SUCTION ORALLY VIA YANKEUR AND OBTAINED SMALL THIN -THICK SECRETIONS. MAINTAINED HOB ELEVATED. RIGHT WRIST # 22 INTACT INFUSING D5 1/2V NS @ 70ML/HR HARLEY WELL. BED IN LOWEST POSITION, LOCKED. BED ALARM ON. CALL LIGHT WITHIN REACH. IN NO APPARENT DISTRESS
--- NOTE | 2019-04-07 18:52 | NUR ---
MS RN OPENING NOTES PATIENT RESTING COMFORTABLY IN BED. ALERT TO SELF. NO SOB. CAREGIVER AT BEDSIDE. NO EVIDENCE OF PAIN NOR DISCOMFORT AT THIS TIME. OBSERVED PATIENT WITH GOOD MEAL INTAKE DURING BREAKFAST AND POOR INTAKE DURING LUNCH AND DINNER AND GETS TIRED EASILY. SUCTION ORALLY VIA YANKAUER AND OBTAINED SMALL THIN -THICK SECRETIONS. MAINTAINED HOB ELEVATED. RIGHT WRIST # 22 INTACT INFUSING D5 1/2V NS @ 70ML/HR HARLEY WELL. BED IN LOWEST POSITION, LOCKED. BED ALARM ON. CALL LIGHT WITHIN REACH. IN NO APPARENT DISTRESS.
--- NOTE | 2019-04-07 19:26 | NUR ---
MS RN PATIENT IN BED AWAKE NON VERBAL, NO S/S OF DISTRESS, STABLE, CALL LIGHT WITHIN REACH. WILL CONTINUE TO MONITOR ACCORDINGLY.
[2019-04-07 20:00] VITALS: BP_SYST 149; BP_DIAS 72; BP_DIAS 92
[2019-04-07] MEDS: SIMVASTATIN 20 MG TABLET PO SCH (21:16)
[2019-04-08] MEDS: IV D5/0.45 NACL 1,000 ML IV PRN ×3 (03:54→19:27)
[2019-04-08] MEDS: BLOOD SUGAR DIAGNOSTIC 1 EACH STRIP IN SCH ×4 (06:08→21:11)
[2019-04-08] MEDS: INSULIN REGULAR, HUMAN 100 UNIT/ML 3 ML VIAL SQ PRN ×2 (06:09→11:53)
--- NOTE | 2019-04-08 06:36 | NUR ---
ASLEEP AND EASILY AWAKEN, NO SIGNIFICANT CHANGES, NO S/S OF DISTRESS, NURSING CARE RENDERED, KEPT CLEAN AND DRY AND COMFORTABLE. NEEDS ATTENDED AND ANTICIPATED. REPOSITION EVERY 2 HOURS. SAFETY MEASURES AT ALL TIMES. ENDORSE TO THE NEXT SHIFT.
[2019-04-08 07:20] LABS: CALCIUM, SERUM 8.7 mg/dL (8.5-10.1); CARBON DIOXIDE 20 mmol/L (21-32); CHLORIDE 109 mmol/L (98-107); CREATININE 0.4 mg/dL (0.6-1.3); GLUCOSE 109 mg/dL (74-106); MAGNESIUM 2.2 mg/dL (1.8-2.4); PHOSPHORUS 2.9 mg/dL (2.5-4.9); POTASSIUM 3.6 mmol/L (3.5-5.1); SODIUM SERUM 138 mmol/L (136-145); UREA NITROGEN, BLOOD 5 mg/dL (7-18)
[2019-04-08 07:25] LABS: BASOPHILS % (AUTO) 0.2 % (0.0-2.0); EOSINOPHILS % (AUTO) 4.3 % (0.0-6.0); HEMATOCRIT 33 % (33-45); LYMPHOCYTES # (AUTO) 0.8 /CMM (0.8-4.8); LYMPHOCYTES % (AUTO) 10.8 % (20.0-44.0); MEAN CORPUSCULAR HGB CONC 34 g/dl (31.0-36.0); MEAN CORPUSCULAR VOLUME 92 fL (82-100); MONOCYTES # (AUTO) 0.8 /CMM (0.1-1.30); MONOCYTES % (AUTO) 10.8 % (2.0-12.0); NEUTROPHILS # (AUTO) 5.2 /CMM (1.8-8.9); NEUTROPHILS % (AUTO) 73.9 % (43.0-81.0); PLATELET COUNT (AUTO) 192 /CMM (150-450); RED BLOOD CELL COUNT(AUTO) 3.58 MIL/uL (4.0-5.2); WHITE BLOOD COUNT (AUTO) 7.1 K/uL (4.3-11.0)
[2019-04-08 08:00] VITALS: BP 162/68
--- NOTE | 2019-04-08 08:00 | NUR ---
m/s commercial attorney: initial assessment received pt in bed awake, but non-verbal. unable to comprehend. no s/s of discomfort. kept comfortable. in no apparent distress noted. will continue to monitor.
[2019-04-08] MEDS: CEFEPIME 1 GM in IV D5W 50 ML IV SCH ×2 (08:15→19:38)
[2019-04-08] MEDS: METHIMAZOLE (5MG) 5 MG TABLET PO SCH (08:37)
[2019-04-08] MEDS: ASPIRIN EC 81 MG TABLET.DR PO SCH (08:37)
[2019-04-08] MEDS: NYSTATIN (PYXIS) 500,000 UNIT/5 ML ORAL.SUSP PO SCH ×3 (08:37→17:16)
[2019-04-08] MEDS: METFORMIN 500 MG TABLET PO SCH (08:38)
[2019-04-08] MEDS: MULTIVITAMINS,THERAGRAN 1 UDTAB TABLET PO SCH (08:38)
[2019-04-08] MEDS: ENOXAPARIN SODIUM 40 MG/0.4 ML DISP.SYRIN SQ SCH (08:39)
[2019-04-08] MEDS: PANTOPRAZOLE 40 MG VIAL IV SCH (09:47)
--- NOTE | 2019-04-08 10:00 | NUR ---
m/s early education teacher: md visit seen and examined by geovanna (acnp) at this time. private caregiver at bedside. pt for d'c planning per acnp. tx done to sacral extending to curtis buttocks wound as ordered. am care rendered. turned and repositioned. kept comfortable. will continue to monitor.
[2019-04-08] MEDS: HYDROGEL DRESSING 90 GM TUBE TP SCH ×2 (10:13→20:49)
--- NOTE | 2019-04-08 11:53 | NUR ---
m/s sensor operator: notes bs [id number]. caregiver remains at bedside. held insulin due to poor appetite. will continue to monitor.
--- NOTE | 2019-04-08 14:00 | NUR ---
m/s regional company truck driver: notes turned and repositioned. kept comfortable. private caregiver remains at bedside. will monitor.
[2019-04-08 16:00] VITALS: BP 155/75
--- NOTE | 2019-04-08 16:00 | NUR ---
m/s back panel padder: notes daughter here visiting and updated plan of care. pt for d'c planning. turned and repositioned. kept comfortable. no distress noted. will monitor.
[2019-04-08] MEDS: DOCUSATE SODIUM 250 MG CAPSULE PO SCH (17:48)
--- NOTE | 2019-04-08 18:35 | NUR ---
m/s real estate agency licensee: notes incontinent care rendered. turned and repositioned. private caregiver remains at bedside. needs attended. no apparent distress noted.
--- NOTE | 2019-04-08 19:00 | NUR ---
m/s caramel coloring operator: notes report given to rupesh (angelic) for continuity of care.
[2019-04-08 19:55] VITALS: BP 137/79
[2019-04-08 20:00] VITALS: BP 137/79
--- NOTE | 2019-04-08 20:06 | NUR ---
recieved in bed aroused when name spoken offered thickened juice fed with tsp swallows w/o problem aspiration precautions . opens eyes when asked to
[2019-04-08] MEDS: SIMVASTATIN 20 MG TABLET PO SCH (21:14)
[2019-04-09] MEDS: BLOOD SUGAR DIAGNOSTIC 1 EACH STRIP IN SCH ×3 (06:18→17:30)
--- NOTE | 2019-04-09 06:44 | NUR ---
WILL OPEN EYES WHEN NAME SPOKEN. FOLLOW SIMPLE DIRECTIONS AND WILL TRY TO FOLLOW THROUGH. SHE IS WEAK IN HER STRENGTH. RIGHT HAND PUFFY ELEVATED ON A PILLOW THROUGHOUT THE NIGHT. SHE IS A FEEDER AND FLUIDS WERE GIVEN TO HER THRU THER NIGHT. VOIDED X2 WOUNDS ON HER BUTTOCKS KEPT CLEAN AND DRY
[2019-04-09] MEDS: CEFEPIME 1 GM in IV D5W 50 ML IV SCH (07:46)
[2019-04-09 08:00] VITALS: BP 152/71
[2019-04-09] MEDS: PANTOPRAZOLE 40 MG VIAL IV SCH (08:04)
[2019-04-09] MEDS: MULTIVITAMINS,THERAGRAN 1 UDTAB TABLET PO SCH (08:04)
[2019-04-09] MEDS: METHIMAZOLE (5MG) 5 MG TABLET PO SCH (08:04)
[2019-04-09] MEDS: METFORMIN 500 MG TABLET PO SCH (08:04)
[2019-04-09] MEDS: ASPIRIN EC 81 MG TABLET.DR PO SCH (08:04)
[2019-04-09] MEDS: NYSTATIN (PYXIS) 500,000 UNIT/5 ML ORAL.SUSP PO SCH ×3 (08:04→17:00)
[2019-04-09] MEDS: ENOXAPARIN SODIUM 40 MG/0.4 ML DISP.SYRIN SQ SCH (08:07)
[2019-04-09] MEDS ORDERED: AMOX-430 PO (09:12)
[2019-04-09] MEDS: HYDROGEL DRESSING 90 GM TUBE TP SCH (09:23)
[2019-04-09] MEDS ORDERED: INFLUENZA VACCINE 2019-20 0.5 ML DISP.SYRIN IM ONE (13:30)
[2019-04-09 14:29] LABS: BASOPHILS % (AUTO) 0.2 % (0.0-2.0); EOSINOPHILS % (AUTO) 3.1 % (0.0-6.0); HEMATOCRIT 32 % (33-45); HEMOGLOBIN 10.8 g/dL (11.5-14.8); LYMPHOCYTES # (AUTO) 0.9 /CMM (0.8-4.8); LYMPHOCYTES % (AUTO) 12.2 % (20.0-44.0); MEAN CORPUSCULAR HGB CONC 34 g/dl (31.0-36.0); MEAN CORPUSCULAR VOLUME 91 fL (82-100); MONOCYTES # (AUTO) 0.5 /CMM (0.1-1.30); MONOCYTES % (AUTO) 6.9 % (2.0-12.0); NEUTROPHILS # (AUTO) 5.6 /CMM (1.8-8.9); NEUTROPHILS % (AUTO) 77.6 % (43.0-81.0); PLATELET COUNT (AUTO) 252 /CMM (150-450); RED BLOOD CELL COUNT(AUTO) 3.53 MIL/uL (4.0-5.2); WHITE BLOOD COUNT (AUTO) 7.3 K/uL (4.3-11.0)
[2019-04-09 14:35] LABS: CALCIUM, SERUM 8.3 mg/dL (8.5-10.1); CARBON DIOXIDE 28 mmol/L (21-32); CHLORIDE 108 mmol/L (98-107); CREATININE 0.4 mg/dL (0.6-1.3); GLUCOSE 109 mg/dL (74-106); POTASSIUM 3.5 mmol/L (3.5-5.1); SODIUM SERUM 141 mmol/L (136-145); UREA NITROGEN, BLOOD 4 mg/dL (7-18)
[2019-04-09 16:00] VITALS: BP 135/79
[2019-04-09] MEDS: DOCUSATE SODIUM 250 MG CAPSULE PO SCH (18:00)
--- NOTE | 2019-04-09 18:43 | NUR ---
PATIENT CLEARED FOR D/C TO HOME WITH HOME HEALTH BY MD. ALL NEEDS ATTENDED. EDUCATION AND DISCHARGED INSTRUCTIONS PROVIDED TO MANAGER BANKING. PATIENT AWAKE , ALERT AND ORIENTED X1. PRESCRIPTION PROVIDED TO MANAGER BANKING, EDUCATED ON SIGHT EFFECTS; CAREGIVER VERBALIZED UNDERSTANDING. MEDICATION CLARIFIED WITH MD. WOUND CARE PROVIDED AND D/C PICTURES TAKEN , PLACED IN THE CHART.IV LINE AND ID WRIST BAND REMOVED. D/C PAPERS SIGHED INCLUDING VALUABLE FORM AND ALL BELONGINGS WITH THE PATIENT. AWAITING FOR PICKUP BY AMBULANCE. WILL ENDORSE TO NEXT SHIFT FOR BOBBY.
--- NOTE | 2019-04-09 19:30 | NUR ---
MS RN NOTES PATIENT DISCHARGE TO HOME VIA GURNEY ACCOMPANIED BY 2 EMT'S AND FAMILIES. ALERT AND ORIENTED X 1. BREATHING REGULAR AND UNLABORED ON OXYGEN VIA NASAL CANNULA AT 4L/MIN. NO IV ACCESS, REMOVED BY MORNING SHIFT. CONFIRMED WITH FAMILY REGARDING DISCHARGE INSTRUCTION AND TEACHINGS, VERBALIZED UNDERSTANDING. DISCHARGE DOCUMENTS SIGNED AND GIVEN TO THE DAUGHTER. VITAL SIGNS WNL. ID BAND REMOVED. INSTRUCTED THAT IN CASE OF EMERGENCY CALL 911 OR GO TO THE NEAREST ER AND TO FOLLOW UP WITH PCP WITHIN 1-2WEEKS.
== END 2019-04-09 19:00 | disposition home health service (06) | DRG 871 ==
LOC: ER 15:37 → MED 19:50
PROVIDERS: ADMIT Nurse Practitioner Acute Care; ATTEND Nurse Practitioner Acute Care
DX: A41.9 Sepsis, unspecified organism (principal); G93.41 Metabolic encephalopathy; N17.0 Acute kidney failure with tubular necrosis; J69.0 Pneumonitis due to inhalation of food and vomit; D68.59 Other primary thrombophilia; N39.0 Urinary tract infection, site not specified; B37.0 Candidal stomatitis; E87.2 Acidosis; E87.0 Hyperosmolality and hypernatremia; G30.9 Alzheimer's disease, unspecified; F02.80 Dementia in other diseases classified elsewhere, unspecified severity, without behavioral disturbance, psychotic disturbance, mood disturbance, and anxiety; Z87.442 Personal history of urinary calculi; E11.9 Type 2 diabetes mellitus without complications; Z88.0 Allergy status to penicillin; Z79.84 Long term (current) use of oral hypoglycemic drugs; R13.10 Dysphagia, unspecified; N20.0 Calculus of kidney; I70.0 Atherosclerosis of aorta; I25.10 Atherosclerotic heart disease of native coronary artery without angina pectoris; I10 Essential (primary) hypertension; E87.6 Hypokalemia; D64.9 Anemia, unspecified; Z79.899 Other long term (current) drug therapy; B96.89 Other specified bacterial agents as the cause of diseases classified elsewhere; M62.84 Sarcopenia; Z74.09 Other reduced mobility; D63.8 Anemia in other chronic diseases classified elsewhere
CPT/HCPCS: 36415; 71045-TC; 80048-TC; 80053-TC; 80061-TC; 80076-TC; 81000-TC; 82962-TC; 83605-TC; 83735-TC; 84100-TC; 84443-TC; 84484-TC; 85025-TC; 85730-TC; 87040-TC; 87081-TC; 87086-TC; 87186-TC; 92526; 92611-TC; 94799-TC; 97112-TC; 97530-TC; A4216; A6248; C9113; G0378; J0692; J1450; J1580; J1650; J1815; J3480; J3490; J7030; J7060

== ENCOUNTER 2019-05-30 12:05 | Emergency (ER) | payer MEDICARE, MEDICAID ==
[~2019-05-30] VITALS: Ht 157.5 cm; Wt 39.9 kg
[~2019-05-30 12:05] MED LIST changes: +AMOX-430 PO; -FISH1CAP16 PO; -FOLI1TAB16 PO; -LEVO500T75 PO; -LORA0.5T PO; -OXYB10TA2 PO; -ZOLP5TAB2 PO
--- NOTE | 2019-05-30 12:09 | NUR ---
Weakness and possible dehydration - sent by PCP for evaluation & treatment, pt to bed 10, pt on monitor, vss, nad noted, pending md gallo
[2019-05-30] MEDS ORDERED: IV NS 0.9% 1,000 ML BAG IV ONE (12:30)
[2019-05-30 12:39] LABS: BASOPHILS % (AUTO) 0.2 % (0.0-2.0); EOSINOPHILS % (AUTO) 3.4 % (0.0-6.0); HEMATOCRIT 38 % (33-45); HEMOGLOBIN 12.1 g/dL (11.5-14.8); LYMPHOCYTES # (AUTO) 1.4 /CMM (0.8-4.8); LYMPHOCYTES % (AUTO) 14.8 % (20.0-44.0); MEAN CORPUSCULAR HGB CONC 32 g/dl (31.0-36.0); MEAN CORPUSCULAR VOLUME 92 fL (82-100); MONOCYTES # (AUTO) 0.6 /CMM (0.1-1.30); NEUTROPHILS % (AUTO) 75.6 % (43.0-81.0); PLATELET COUNT (AUTO) 285 /CMM (150-450); RED BLOOD CELL COUNT(AUTO) 4.07 MIL/uL (4.0-5.2); WHITE BLOOD COUNT (AUTO) 9.3 K/uL (4.3-11.0)
[2019-05-30 12:49] LABS: CALCIUM, SERUM 9.1 mg/dL (8.5-10.1); CARBON DIOXIDE 30 mmol/L (21-32); CHLORIDE 106 mmol/L (98-107); CREATININE 0.4 mg/dL (0.6-1.3); GLUCOSE 97 mg/dL (74-106); POTASSIUM 4.3 mmol/L (3.5-5.1); SODIUM SERUM 140 mmol/L (136-145); UREA NITROGEN, BLOOD 16 mg/dL (7-18)
[2019-05-30 12:55] LABS: ALANINE AMINOTRANSFERASE 12 U/L (12-78); ALBUMIN 2.9 g/dL (3.4-5.0); ALKALINE PHOSPHATASE 62 U/L (46-116); ASPARTATE AMINOTRANSFERASE 15 U/L (15-37); BILIRUBIN,DIRECT 0.2 mg/dL (0.0-0.2); BILIRUBIN,TOTAL 0.8 mg/dL (0.2-1.0); TOTAL PROTEIN, SERUM 6.9 g/dL (6.4-8.2)
[2019-05-30 13:11] LABS: APPEARANCE,URINE Slightly Cloudy (CLEAR); BILIRUBIN,URINE Negative (NEGATIVE); BLOOD, URINE Moderate Ery/uL (NEGATIVE); COLOR,URINE Yellow (YELLOW); KETONES,URINE Trace (NEGATIVE); LEUKOCYTE ESTERASE ,URINE Small (NEGATIVE); NITRITE, URINE Positive (NEGATIVE); PH,URINE 5.5 (5.0-8.0); PROTEIN,URINE Negative (NEGATIVE); UGLUCOSE Negative (NEGATIVE)
[2019-05-30 13:25] LABS: BACTERIA,URINE Moderate /HPF (None Seen); SQUAMOUS EPITHELIAL CELL,UR Few /HPF (None Seen)
[2019-05-30] MEDS ORDERED: QUETIAPINE FUMARATE 25 MG TABLET PO PRN (14:00)
[2019-05-30] MEDS ORDERED: MAG HYDROX/AL HYDROX/SIMETH 30 ML UDC PO PRN (14:00)
[2019-05-30] MEDS ORDERED: ONDANSETRON HCL/PF 4 MG/2 ML VIAL IVP PRN (14:00)
[2019-05-30] MEDS ORDERED: MAGNESIUM HYDROXIDE 30 ML UDC PO PRN (14:00)
[2019-05-30] MEDS ORDERED: ACETAMINOPHEN 325 MG TABLET PO PRN (14:00)
[2019-05-30] MEDS ORDERED: Z GUARD REMEDY 2 OZ OINT TP PRN (14:00)
[2019-05-30] MEDS ORDERED: HYDROCODONE/APAP 5/325MG 1 EACH TABLET PO PRN (14:00)
--- NOTE | 2019-05-30 14:33 | NUR ---
per family, dr jennings stated that he will d/c them with diflucan prescription, dr. silva gave d/c papers, no diflucan prescription in chart. charge nurse will contact dr. jennings for prescription
--- NOTE | 2019-05-30 14:35 | NUR ---
[facility] ETA [id number] TRIP#[id number]
--- NOTE | 2019-05-30 16:53 | NUR ---
UPDATED ETA [id number]
[2019-05-30] MEDS ORDERED: DOCUSATE SODIUM 250 MG CAPSULE PO SCH (18:00)
--- NOTE | 2019-05-30 18:57 | NUR ---
PT LEFT VIA PRIVATE AMBULANCE, LEFT INS TABLE CONDTION, VSS, NAD NOTED, GOING BACK TO PRIVATE RESIDENDCE
[2019-05-30 19:28] VITALS: BP 100/62
[2019-05-30] MEDS ORDERED: ENOXAPARIN SODIUM 30 MG/0.3 ML DISP.SYRIN SQ SCH (21:00)
[2019-05-31] MEDS ORDERED: PANTOPRAZOLE 40 MG TABLET.DR PO SCH (07:30)
[2019-05-31] MEDS ORDERED: ASPIRIN EC 81 MG TABLET.DR PO SCH (09:00)
[2019-05-31] MEDS ORDERED: METFORMIN 500 MG TABLET PO SCH (09:00)
[2019-05-31] MEDS ORDERED: METHIMAZOLE (5MG) 5 MG TABLET PO SCH (09:00)
== END 2019-05-30 18:57 | disposition home or self-care (01) ==
LOC: ER 12:08
DX: R62.7 Adult failure to thrive (principal); F17.200 Nicotine dependence, unspecified, uncomplicated; I10 Essential (primary) hypertension; E11.9 Type 2 diabetes mellitus without complications; G30.9 Alzheimer's disease, unspecified; F02.80 Dementia in other diseases classified elsewhere, unspecified severity, without behavioral disturbance, psychotic disturbance, mood disturbance, and anxiety; Z68.1 Body mass index [BMI] 19.9 or less, adult; Z87.442 Personal history of urinary calculi; Z88.0 Allergy status to penicillin; Z79.899 Other long term (current) drug therapy; Z79.84 Long term (current) use of oral hypoglycemic drugs; Z79.82 Long term (current) use of aspirin
CPT/HCPCS: 36415; 71045; 80048; 80076; 81001; 83605; 84145; 84484; 85025; 85730; 87040 ×2; 87077; 87081; 87086; 87186; 93005; 99284; 99406; J7030; 81000-TC